=== PATIENT | female | born 1945 | race Caucasian/White ===

== ENCOUNTER 2016-08-17 17:35 | Inpatient (IN) | payer MEDICARE, OTHER ==
[~2016-08-17] VITALS: Ht 154.9 cm; Wt 47.3 kg
[2016-08-17] VITALS (10 sets, daily range): BP systolic 96–131; BP diastolic 47–77; PULSE 98–108; RESP 20; TEMP 98.7–99.6; O2SAT 92–95
[~2016-08-17 17:35] MED LIST: ALBU17I INH; AZIT500I PO; COMBAER INH; PRED10 PO
[2016-08-17] MEDS ORDERED: VENTAER INH ×2 (17:56→19:04)
--- NOTE | 2016-08-17 18:06 | PD ---
HPI Chief Complaint: Respiratory Symptoms Time Seen by Provider: 17:55 Travel History International Travel<30 days: No Contact w/Intl Traveler<30days: No Traveled to known affect area: No History of Present Illness HPI 71yo F with PMH of COPD, cig smoker presents to the ED with c/o chest congestion , nasal congestion, cough and midsternal chest pain with cough for 1 week. Also had tactile fever and nonbloody diarrhea since last night. Denies any vomiting or abdominal pain. States granddaughter was sick 1 week or 2 before. PFSH Past Medical History Autoimmune Disease: No Cancer: Yes (CERVICAL 2008) Cardiovascular Problems: No Chemotherapy: Yes COPD: Yes Endocrine: No Genitourinary: Yes (KIDNEY STENT, UROVAGINAL FISTULA) Immune Disorder: No Musculoskeletal: No Neurologic: No Reproductive: No Respiratory: Yes Radiation Therapy: Yes Influenza Vaccination: No ?: Not Past Surgical History Genitourinary Surgery: Yes (KIDNEY STENT CHANGED Q6MTHS) Social History Alcohol Use: No Tobacco Use: Yes (1/2 ppd) Substance Use: No Allergies-Medications (Allergen,Severity, Reaction): Coded Allergies: No Known Allergies (Unverified , 08/17/16) Reported Meds & Prescriptions Reported Meds & Active Scripts Active Review of Systems Except as stated in HPI: all other systems reviewed are Neg Physical Exam Narrative GENERAL: 71yo F in mild distress. SKIN: Warm and dry. HEAD: Atraumatic. Normocephalic. EYES: Pupils equal and round. No scleral icterus. No injection or drainage. ENT: + Increased right nasal turbinate swelling. NECK: Trachea midline. No JVD. CARDIOVASCULAR: Regular rate and rhythm. No murmur appreciated. RESPIRATORY: Mildly tachypneic. Mild coarse breath sounds lower lungs. GASTROINTESTINAL: Abdomen soft, non-tender, nondistended. No rebound tenderness or guarding. MUSCULOSKELETAL: No obvious deformities. No clubbing. No cyanosis. No edema. NEUROLOGICAL: Awake and alert. No obvious cranial nerve deficits. Motor grossly within normal limits. Normal speech. PSYCHIATRIC: Appropriate mood and affect; insight and judgment normal. Data Data Last Documented VS Vital Signs Date Time Temp Pulse Resp B/P Pulse Ox O2 Delivery O2 Flow Rate FiO2 08/17/16 20:00 100 20 96/47 92 Room Air 08/17/16 18:22 21 08/17/16 17:43 98.7 Orders Complete Blood Count With Diff (08/17/16 18:02) Basic Metabolic Panel (Bmp) (08/17/16 18:02) Act Partial Throm Time (Ptt) (08/17/16 18:02) Prothrombin Time / Inr (Pt) (08/17/16 18:02) Magnesium (Mg) (08/17/16 18:02) Ckmb (Isoenzyme) Profile (08/17/16 18:02) Troponin I (08/17/16 18:02) Arterial Blood Gas (Abg) (08/17/16 18:02) Influenzae A/B Antigen (08/17/16 18:02) Blood Culture (08/17/16 18:02) Iv Access Insert/Monitor (08/17/16 18:02) Electrocardiogram (08/17/16 18:02) Ecg Monitoring (08/17/16 18:02) Oximetry (08/17/16 18:02) Oxygen Administration (08/17/16 18:02) Chest, Single Ap (08/17/16 18:02) Methylprednisolone So Succ Inj (Solumedr (08/17/16 18:15) Albuterol-Ipratropium Neb (Duoneb Neb) (08/17/16 18:15) Lactic Acid Sepsis Protocol (08/17/16 18:02) CKMB (08/17/16 18:20) CKMB% (08/17/16 18:20) B-Type Natriuretic Peptide (08/17/16 19:36) Place In Observation (08/17/16 ) Vital Signs (Adult) Q4H (08/17/16 19:58) Activity Oob With Assistance (08/17/16 19:58) Magnetic Prospector / Telemetry .CONTINUOUS (08/17/16 19:58) Diet Heart Healthy (08/18/16 Breakfast) Sodium Chloride 0.9% Flush (Ns Flush) (08/17/16 20:00) Sodium Chloride 0.9% Flush (Ns Flush) (08/17/16 21:00) Basic Metabolic Panel (Bmp) (08/18/16 06:00) Complete Blood Count With Diff (08/18/16 06:00) Resp Oxygen Adeel C Titrat 1-4 L (08/17/16 ) Pt Request For Service (08/17/16 19:58) Case Management Consult (08/17/16 19:58) Enoxaparin Inj (Lovenox Inj) (08/18/16 09:00) Naloxone Inj (Narcan Inj) (08/17/16 20:00) Admit Order (Ed Use Only) (08/17/16 20:03) Labs Laboratory Tests Test 08/17/16 18:20 White Blood Count 11.2 TH/MM3 Red Blood Count 3.27 MIL/MM3 Hemoglobin 10.9 GM/DL Hematocrit 32.3 % Mean Corpuscular Volume 98.6 FL Mean Corpuscular Hemoglobin 33.2 PG Mean Corpuscular Hemoglobin 33.7 % Concent Red Cell Distribution Width 13.6 % Platelet Count 280 TH/MM3 Mean Platelet Volume 6.2 FL Neutrophils (%) (Auto) 93.0 % Lymphocytes (%) (Auto) 3.2 % Monocytes (%) (Auto) 3.4 % Eosinophils (%) (Auto) 0.3 % Basophils (%) (Auto) 0.1 % Neutrophils # (Auto) 10.4 TH/MM3 Lymphocytes # (Auto) 0.4 TH/MM3 Monocytes # (Auto) 0.4 TH/MM3 Eosinophils # (Auto) 0.0 TH/MM3 Basophils # (Auto) 0.0 TH/MM3 CBC Comment DIFF FINAL Differential Comment Prothrombin Time 11.1 SEC Prothromb Time International 1.0 RATIO Ratio Activated Partial 39.0 SEC Thromboplast Time Blood Gas Puncture Site LT RADIAL Blood Gas Patient Temperature 98.6 Blood Gas HCO3 22 mmol/L Blood Gas Base Excess -0.9 mmol/L Blood Gas Oxygen Saturation 90 % Arterial Blood pH 7.46 Arterial Blood Partial 32 mmHG Pressure CO2 Arterial Blood Partial 70 mmHG Pressure O2 Arterial Blood Oxygen Content 15.0 Vol % Arterial Blood 4.0 % Carboxyhemoglobin Arterial Blood Methemoglobin 1.3 % Blood Gas Hemoglobin 11.8 G/DL Oxygen Delivery Device ROOM AIR Blood Gas Inspired Oxygen 21 % Sodium Level 130 MEQ/L Potassium Level 3.9 MEQ/L Chloride Level 95 MEQ/L Carbon Dioxide Level 24.5 MEQ/L Anion Gap 11 MEQ/L Blood Urea Nitrogen 13 MG/DL Creatinine 1.10 MG/DL Estimat Glomerular Filtration 49 ML/MIN Rate Random Glucose 121 MG/DL Lactic Acid Level 0.7 mmol/L Calcium Level 8.1 MG/DL Magnesium Level 1.8 MG/DL Total Creatine Kinase 134 U/L Creatine Kinase MB 2.1 NG/ML Troponin I LESS THAN 0.02 NG/ML B-Type Natriuretic Peptide 101 PG/ML MDM Medical Decision Making Medical Screen Exam Complete: Yes Emergency Medical Condition: Yes Interpretation(s) EKG: NSR 91bpm. Normal axis. Q wave V1, V2. No St segment elevation or depression. Differential Diagnosis Viral syndrome vs. influenza vs. Pneumonia vs. atypical ACS vs. dehydration Narrative Course 71yo F with flu like symptoms. Pt is a little tachypneic with some coarse breath sounds on exam. Pt is saturating at 93% on RA. Pt with COPD and is a smoker so will give duonebs x3 and methylprednisolone 125mg IV. Pt reevaluated at bedside and feels better after the 3 treatments. Lung exam showed improved air entry now with more expiratory wheezing bilaterally. Labs reviewed, mild leukocytosis at 11.2. H/h low at 10.9/32.3 at baseline. CMP, lactic acid and troponin pending. CXR showed COPD. Bilateral upper lobe interstitial prominence and patchy airspace disease characteristic of pneumonitis or atypical presentation of pulmonary edema. Sign out to next team to follow up labs and reevaluate for disposition. Additional Instructions: Please follow up with your PMD in 3-7 days. Return to the ED if symptoms worsen. Blanka Prather DO Aug 17, 2016 18:06
[2016-08-17] MEDS ORDERED: SODIUM CHLORIDE 0.9% FLUSH 5 ML FLUSH IVF PRN (18:15)
[2016-08-17] MEDS ORDERED: methylPREDNISolone SOD SUCC 125 MG/2 ML VIAL IVP ONE (18:15)
[2016-08-17] MEDS: RESP: ALBUTEROL 2.5 MG/IPRATROPIUM 0.5 MG NEB (SCH) INH ×2 (18:16→18:17)
[2016-08-17 18:29] LABS: BLOOD GAS BASE EXCESS -0.9 mmol/L (-2-2); BLOOD GAS HCO3 22 mmol/L (22-26); BLOOD GAS METHEMOGLOBIN 1.3 % (0-2); BLOOD GAS O2 HGB SATURATION 90 % (90-100); BLOOD GAS PCO2 32 mmHG (38-42); BLOOD GAS PO2 70 mmHG (61-120); BLOOD GAS TOTAL HGB 11.8 G/DL (12.0-16.0); CRITICAL VALUE NO; DRAW SITE LT RADIAL; FIO2 21 %; NUMBER OF ARTERIAL PUNCTURES 1; OXYGEN DEVICE ROOM AIR; STAT YES; TEMP CORR TO 98.6; ULNAR PULSE PRESENT
--- NOTE | 2016-08-17 18:32 | RADHPO ---
EXAM DATE/TIME: 08/17/2016 18:14 [facility] COMPARISON: CHEST SINGLE AP, October 10, 2012, 18:27. INDICATIONS : Chest congestion, cough starting today MEDICAL HISTORY : Chronic obstructive pulmonary disease. SURGICAL HISTORY : None. ENCOUNTER: Initial ACUITY: 1 day PAIN SCORE: 0/10 LOCATION: Bilateral chest FINDINGS: Lungs are hyperinflated. Interstitial prominence and patchy airspace disease has developed in both up per lobes. Heart and mediastinal structures are stable. CONCLUSION: COPD. Bilateral upper lobe interstitial prominence and patchy airspace disease characteristic of pneumoniti s or atypical presentation of pulmonary edema. Jose Santiago MD on August 17, 2016 at 18:30 Board Certified Radiologist. This report was verified electronically.
[2016-08-17 18:46] LABS: AUTOMATED NEUTROPHIL # 10.4 TH/MM3 (1.8-7.7); BASOPHIL % 0.1 % (0.0-2.0); EOSINOPHIL % 0.3 % (0.0-4.0); HEMATOCRIT 32.3 % (35.0-46.0); LYMPH % 3.2 % (9.0-44.0); LYMPHOCYTE # 0.4 TH/MM3 (1.0-4.8); MEAN CELL VOLUME 98.6 FL (80.0-100.0); MEAN CORPUSCULAR HEMOGLOBIN 33.2 PG (27.0-34.0); MEAN CORPUSCULAR HGB CONC 33.7 % (32.0-36.0); MONO % 3.4 % (0.0-8.0); PLATELET COUNT 280 TH/MM3 (150-450); RED BLOOD COUNT 3.27 MIL/MM3 (4.00-5.30); RED CELL DISTRIBUTION WIDTH 13.6 % (11.6-17.2); WHITE BLOOD COUNT 11.2 TH/MM3 (4.0-11.0)
[2016-08-17 18:48] LABS: HEMO FLAGS DIFF FINAL
[2016-08-17 19:00] LABS: CHLORIDE 95 MEQ/L (98-107); POTASSIUM 3.9 MEQ/L (3.5-5.1); SODIUM (NA) 130 MEQ/L (136-145)
[2016-08-17 19:04] LABS: ANION GAP 11 MEQ/L (5-15); BICARBONATE 24.5 MEQ/L (21.0-32.0); BLOOD UREA NITROGEN 13 MG/DL (7-18); MAGNESIUM 1.8 MG/DL (1.5-2.5)
[2016-08-17] MEDS ORDERED: PRED20 PO (19:04)
[2016-08-17 19:05] LABS: PROTHROMBIN TIME - PATIENT 11.1 SEC (9.8-11.6)
[2016-08-17 19:07] LABS: GLOMERULAR FILTRATION RATE 49 ML/MIN (>89)
[2016-08-17 19:10] LABS: CREATINE KINASE 134 U/L (26-192)
[2016-08-17 19:22] LABS: CKMB 2.1 NG/ML (0.5-3.6)
[2016-08-17] MEDS ORDERED: NALOXONE HCL 0.4 MG/ML AMP IV PRN (20:00)
[2016-08-17] MEDS ORDERED: SODIUM CHLORIDE 0.9% FLUSH 5 ML FLUSH FLUSH PRN (20:00)
--- NOTE | 2016-08-17 20:02 | PD ---
Physical Exam Time Seen by Provider: 19:45 Narrative The patient was left by Dr. Prather to make a disposition. The patient thinks she has had a fever at home today. She never took her temperature. She continues to smoke one half pack a day. The patient is mouth breathing continuously and oral temperatures cannot be trusted, we will do an alternate temperature. Data Data Last Documented VS Vital Signs Date Time Temp Pulse Resp B/P Pulse Ox O2 Delivery O2 Flow Rate FiO2 08/17/16 18:55 101 20 108/58 94 08/17/16 18:22 21 08/17/16 17:43 98.7 Orders Complete Blood Count With Diff (08/17/16 18:02) Basic Metabolic Panel (Bmp) (08/17/16 18:02) Act Partial Throm Time (Ptt) (08/17/16 18:02) Prothrombin Time / Inr (Pt) (08/17/16 18:02) Magnesium (Mg) (08/17/16 18:02) Ckmb (Isoenzyme) Profile (08/17/16 18:02) Troponin I (08/17/16 18:02) Arterial Blood Gas (Abg) (08/17/16 18:02) Influenzae A/B Antigen (08/17/16 18:02) Blood Culture (08/17/16 18:02) Iv Access Insert/Monitor (08/17/16 18:02) Electrocardiogram (08/17/16 18:02) Ecg Monitoring (08/17/16 18:02) Oximetry (08/17/16 18:02) Oxygen Administration (08/17/16 18:02) Chest, Single Ap (08/17/16 18:02) Sodium Chloride 0.9% Flush (Ns Flush) (08/17/16 18:15) Methylprednisolone So Succ Inj (Solumedr (08/17/16 18:15) Albuterol-Ipratropium Neb (Duoneb Neb) (08/17/16 18:15) Lactic Acid Sepsis Protocol (08/17/16 18:02) CKMB (08/17/16 18:20) CKMB% (08/17/16 18:20) B-Type Natriuretic Peptide (08/17/16 19:36) Labs Laboratory Tests Test 08/17/16 18:20 White Blood Count 11.2 TH/MM3 Red Blood Count 3.27 MIL/MM3 Hemoglobin 10.9 GM/DL Hematocrit 32.3 % Mean Corpuscular Volume 98.6 FL Mean Corpuscular Hemoglobin 33.2 PG Mean Corpuscular Hemoglobin 33.7 % Concent Red Cell Distribution Width 13.6 % Platelet Count 280 TH/MM3 Mean Platelet Volume 6.2 FL Neutrophils (%) (Auto) 93.0 % Lymphocytes (%) (Auto) 3.2 % Monocytes (%) (Auto) 3.4 % Eosinophils (%) (Auto) 0.3 % Basophils (%) (Auto) 0.1 % Neutrophils # (Auto) 10.4 TH/MM3 Lymphocytes # (Auto) 0.4 TH/MM3 Monocytes # (Auto) 0.4 TH/MM3 Eosinophils # (Auto) 0.0 TH/MM3 Basophils # (Auto) 0.0 TH/MM3 CBC Comment DIFF FINAL Differential Comment Prothrombin Time 11.1 SEC Prothromb Time International 1.0 RATIO Ratio Activated Partial 39.0 SEC Thromboplast Time Blood Gas Puncture Site LT RADIAL Blood Gas Patient Temperature 98.6 Blood Gas HCO3 22 mmol/L Blood Gas Base Excess -0.9 mmol/L Blood Gas Oxygen Saturation 90 % Arterial Blood pH 7.46 Arterial Blood Partial 32 mmHG Pressure CO2 Arterial Blood Partial 70 mmHG Pressure O2 Arterial Blood Oxygen Content 15.0 Vol % Arterial Blood 4.0 % Carboxyhemoglobin Arterial Blood Methemoglobin 1.3 % Blood Gas Hemoglobin 11.8 G/DL Oxygen Delivery Device ROOM AIR Blood Gas Inspired Oxygen 21 % Sodium Level 130 MEQ/L Potassium Level 3.9 MEQ/L Chloride Level 95 MEQ/L Carbon Dioxide Level 24.5 MEQ/L Anion Gap 11 MEQ/L Blood Urea Nitrogen 13 MG/DL Creatinine 1.10 MG/DL Estimat Glomerular Filtration 49 ML/MIN Rate Random Glucose 121 MG/DL Lactic Acid Level 0.7 mmol/L Calcium Level 8.1 MG/DL Magnesium Level 1.8 MG/DL Total Creatine Kinase 134 U/L Creatine Kinase MB 2.1 NG/ML Troponin I LESS THAN 0.02 NG/ML [facility] Medical Record Reviewed: Yes Supervised Visit with VIPIN: Yes Interpretation(s) The cardiac enzymes are normal. The blood gases on room air show pH 7.46, CO2 32, PO2 70 with O2 sat 90%. The carboxyhemoglobin level was 4.0. The chest x- ray shows bilateral upper lobe interstitial prominence and patchy airspace disease characteristic of pneumonitis. Differential Diagnosis COPD with acute exacerbation, pneumonia, bronchitis, electrolyte disorder, continued tobacco abuse, hypoxemia Narrative Course It is now 0748 and the patient has received 3 DuoNeb. The blood gases after the DuoNeb she will that the patient is still tachypneic and has a borderline O2 saturation of 90%. The chest x-ray shows a bilateral pneumonitis, left worse than right. The patient appears to have pneumonitis. This goes along with her cough and perceived fever at home. She remains uncomfortable and short of breath after 3 DuoNeb treatments. The patient is breathing rapidly to achieve the borderline oxygenation of 90%. Plan: The patient will be admitted to Dr. Sommer. I discussed the patient with her. She will be put on Levaquin. Sepsis Criteria SIRS Criteria (2 or more): Heart rate over 90 Diagnosis Primary Impression: Bilateral pneumonia Additional Impression: COPD with acute exacerbation Patient Instructions: General Instructions Departure Forms: Tests/Procedures Additional Instruction: Please follow up with your PMD in 3-7 days. Return to the ED if symptoms worsen. Scripts Prednisone 20 Mg Tab20 Mg PO BID 5 Days Ref 0 Prov:Blanka Prather DO 08/17/16 Albuterol 18 GM Inh (Ventolin Hfa 18 GM Inh)90 Mcg/Act Aer2 Puff INH Q4H PRN ( SHORTNESS OF BREATH) #1 INHALER Ref 0 Prov:Blanka Prather DO 08/17/16 Disposition: 01 DISCHARGE HOME Condition: Stable Feliciano Medeiros MD Aug 17, 2016 20:02
[2016-08-17] MEDS ORDERED: LEVOFLOXACIN 500 MG PREMIX INJ 100 ML IV ONE (20:15)
[2016-08-17] MEDS: SODIUM CHLORIDE 0.9% FLUSH 5 ML FLUSH FLUSH SCH (20:47)
[2016-08-17] MEDS ORDERED: RESP: ALBUTEROL 2.5 MG/IPRATROPIUM 0.5 MG NEB (PRN) NEB (21:00)
[2016-08-17] MEDS: RESP: ALBUTEROL 2.5 MG/IPRATROPIUM 0.5 MG NEB (SCH) NEB (21:22)
[2016-08-18] VITALS (12 sets, daily range): BP systolic 101–141; BP diastolic 68–84; PULSE 89–138; RESP 19–24; TEMP 96.2–100.1; O2SAT 89–99
[2016-08-18] MEDS: methylPREDNISolone SOD SUCC 40 MG/1 ML VIAL IV PUSH SCH ×5 (00:15→23:07)
[2016-08-18] MEDS ORDERED: NICOTINE 7 MG/24 HR PATCH TD ONE ×3 (00:45→16:45)
[2016-08-18] MEDS: RESP: ALBUTEROL 2.5 MG/IPRATROPIUM 0.5 MG NEB (SCH) NEB ×4 (03:41→21:24)
[2016-08-18 06:09] LABS: AUTOMATED NEUTROPHIL # 8.2 TH/MM3 (1.8-7.7); EOSINOPHIL % 0.1 % (0.0-4.0); HEMATOCRIT 30.8 % (35.0-46.0); LYMPH % 2.7 % (9.0-44.0); LYMPHOCYTE # 0.2 TH/MM3 (1.0-4.8); MEAN CELL VOLUME 97.9 FL (80.0-100.0); MEAN CORPUSCULAR HEMOGLOBIN 32.5 PG (27.0-34.0); MEAN CORPUSCULAR HGB CONC 33.2 % (32.0-36.0); MONO % 1.3 % (0.0-8.0); NEUT % 95.9 % (16.0-70.0); PLATELET COUNT 271 TH/MM3 (150-450); RED BLOOD COUNT 3.15 MIL/MM3 (4.00-5.30); RED CELL DISTRIBUTION WIDTH 13.1 % (11.6-17.2); WHITE BLOOD COUNT 8.5 TH/MM3 (4.0-11.0)
[2016-08-18 06:11] LABS: HEMO FLAGS DIFF FINAL
[2016-08-18 06:17] LABS: POTASSIUM 4.4 MEQ/L (3.5-5.1)
[2016-08-18 06:20] LABS: BICARBONATE 23.2 MEQ/L (21.0-32.0)
--- NOTE | 2016-08-18 08:52 | HHI.HP ---
HPI Service [facility] Hospitalists Primary Care Physician No Primary Care Physician Admission Diagnosis bilateral pneumonitis Diagnoses: Chief Complaint: SOB cough fatigue feverish Travel History International Travel<30 Days: No Contact w/Intl Traveler <30 Da: No Traveled to Known Affected Are: No History of Present Illness This is a 71-year-old female with past medical history significant for COPD with continued tobacco use and previous history of cervical cancer who presents to [place] ED with complaints of increased shortness of breath, cough and fatigue ongoing for the past week. She also reports associated subjective fever , chills, runny nose and headache. Reports mild sore throat at the onset of her symptoms but this has since resolved. She also states that she had severe diarrhea all night long 2 nights ago but none in the past 24 hours. She had a brief episode of nausea yesterday morning but denies any vomiting. She denies any recent antibiotic use. She denies any complaints of chest pain or abdominal pain. She denies any lower extremity swelling. She denies any urinary complaints and also denies any hematochezia or melena. She does not use oxygen at home. She continues to smoke a half pack per day. She states she only uses an albuterol inhaler at home. She was previously on an inhaled twice daily medication but this ran out over a year ago. She's not been to see a physician for the past several years because she's been "healthy". She lives with her daughter and granddaughter both of whom have been ill with cough, fever and congestion and on antibiotics. Review of Systems Constitutional: COMPLAINS OF: Fever (subjective, did not record), DENIES: Chills, Dizziness, Night Sweats Endocrine: DENIES: Polydipsia, Polyuria, Polyphagia Eyes: DENIES: Blurred vision, Diplopia, Double Vision Ears, nose, mouth, throat: COMPLAINS OF: Throat pain (one week ago, mild, resolved), Running Nose, DENIES: Vertigo, Ear Pain Respiratory: COMPLAINS OF: Cough (chronic, increased in past week), Sputum production (whitish increased production), Shortness of breath (as stated in HPI ) Cardiovascular: DENIES: Chest pain, Palpitations, Lower Extremity Edema Gastrointestinal: COMPLAINS OF: Diarrhea (2 nights ago, resolved), DENIES: Abdominal pain, Black stools, Bloody stools, Vomiting Genitourinary: DENIES: Urinary frequency, Hematuria, Dysuria Musculoskeletal: DENIES: Back pain, Neck pain Integumentary: DENIES: Pruritus, Rash Hematologic/lymphatic: DENIES: Lymphadenopathy Immunologic/allergic: DENIES: Eczema, Urticaria Neurologic: COMPLAINS OF: Headache (as stated in HPI), DENIES: Paresthesias, Seizures Psychiatric: DENIES: Confusion, Mood changes, Depression Past Family Social History Past Medical History Cervical cancer, status post chemotherapy COPD History of kidney stent placement, urovaginal fistula Past Surgical History Left renal stent placement due to obstruction related to cervical cancer Reported Medications Albuterol inhaler Allergies: Coded Allergies: No Known Allergies (Unverified , 08/17/16) Active Ordered Medications Current Medications Medications (Trade) Dose Ordered Sig/Chad Route Start Time Stop Time Status Last Admin (NS Flush) 2 ml UNSCH PRN FLUSH 08/17/16 20:00 (NS Flush) 2 ml BID FLUSH 08/17/16 21:00 08/17/16 20:47 (Lovenox Inj) 40 mg Q24H SQ 08/18/16 09:00 (Narcan Inj) 0.4 mg UNSCH PRN IV 08/17/16 20:00 (SoluMEDROL INJ) 40 mg Q6HR IV PUSH 08/18/16 00:00 08/18/16 06:14 Pantoprazole Sodium 40 mg 40 mg DAILY PO 08/18/16 09:00 (Levaquin 750 Mg Premix Inj) 150 ml @ 100 mls/hr Q48H IV 08/18/16 21:00 (Levaquin) 750 mg DAILY PO 08/18/16 09:00 UNV Family History Mother and father of unknown cancer in their 80s Grandmother, diabetes Social History Patient denies any alcohol use or illicit drug use. Patient is every day smoker, 1/2 ppd. Physical Exam Vital Signs Vital Signs Date Time Temp Pulse Resp B/P Pulse Ox O2 Delivery O2 Flow Rate FiO2 08/18/16 08:00 98.2 102 20 125/74 95 08/18/16 04:08 99 08/18/16 04:00 96.2 105 19 127/68 93 08/18/16 00:39 89 08/18/16 00:00 98.3 96 24 141/81 93 08/17/16 23:25 100 20 117/62 95 Room Air 08/17/16 22:00 108 20 118/56 94 Room Air 08/17/16 21:22 95 21 08/17/16 21:00 99.6 98 20 131/61 95 Room Air 08/17/16 20:00 100 20 96/47 92 Room Air 08/17/16 19:25 16 93 08/17/16 19:00 99 20 112/51 93 Room Air 08/17/16 18:55 101 20 108/58 94 08/17/16 18:40 95 08/17/16 18:22 93 21 08/17/16 17:49 16 93 08/17/16 17:43 98.7 104 20 120/77 93 Physical Exam GENERAL: This is a thin, elderly patient, with mild dyspnea noted with conversation. SKIN: No rashes, ecchymoses or lesions. Cool and dry. HEAD: Atraumatic. Normocephalic. No temporal or scalp tenderness. EYES: Pupils equal round and reactive. Extraocular motions intact. No scleral icterus. No injection or drainage. ENT: Nose without bleeding, purulent drainage or septal hematoma. Throat without erythema, tonsillar hypertrophy or exudate. Uvula midline. Airway patent. NECK: Trachea midline. No lymphadenopathy. Supple, nontender, no meningeal signs. CARDIOVASCULAR: Regular rate and rhythm without murmurs, gallops, or rubs. RESPIRATORY: Clear to auscultation. Breath sounds equal bilaterally. Mild expiratory wheezing noted. Prolonged expiration. GASTROINTESTINAL: Abdomen soft, non-tender, nondistended. No hepato-splenomegaly , or palpable masses. No guarding. MUSCULOSKELETAL: Extremities without clubbing, cyanosis, or edema. No joint tenderness, effusion, or edema noted. No calf tenderness. NEUROLOGICAL: Awake and alert. Cranial nerves II through XII intact. Motor and sensory grossly within normal limits. Five out of 5 muscle strength in all muscle groups. Normal speech. Laboratory Laboratory Tests Test 08/17/16 08/18/16 18:20 04:57 White Blood Count 11.2 8.5 Red Blood Count 3.27 3.15 Hemoglobin 10.9 10.2 Hematocrit 32.3 30.8 Mean Corpuscular Volume 98.6 97.9 Mean Corpuscular Hemoglobin 33.2 32.5 Mean Corpuscular Hemoglobin 33.7 33.2 Concent Red Cell Distribution Width 13.6 13.1 Platelet Count 280 271 Mean Platelet Volume 6.2 6.6 Neutrophils (%) (Auto) 93.0 95.9 Lymphocytes (%) (Auto) 3.2 2.7 Monocytes (%) (Auto) 3.4 1.3 Eosinophils (%) (Auto) 0.3 0.1 Basophils (%) (Auto) 0.1 0.0 Neutrophils # (Auto) 10.4 8.2 Lymphocytes # (Auto) 0.4 0.2 Monocytes # (Auto) 0.4 0.1 Eosinophils # (Auto) 0.0 0.0 Basophils # (Auto) 0.0 0.0 CBC Comment DIFF FINAL DIFF FINAL Differential Comment Prothrombin Time 11.1 Prothromb Time International 1.0 Ratio Activated Partial 39.0 Thromboplast Time Blood Gas Puncture Site LT RADIAL Blood Gas Patient Temperature 98.6 Blood Gas HCO3 22 Blood Gas Base Excess -0.9 Blood Gas Oxygen Saturation 90 Arterial Blood pH 7.46 Arterial Blood Partial 32 Pressure CO2 Arterial Blood Partial 70 Pressure O2 Arterial Blood Oxygen Content 15.0 Arterial Blood 4.0 Carboxyhemoglobin Arterial Blood Methemoglobin 1.3 Blood Gas Hemoglobin 11.8 Oxygen Delivery Device ROOM AIR Blood Gas Inspired Oxygen 21 Sodium Level 130 130 Potassium Level 3.9 4.4 Chloride Level 95 96 Carbon Dioxide Level 24.5 23.2 Anion Gap 11 11 Blood Urea Nitrogen 13 14 Creatinine 1.10 1.10 Estimat Glomerular Filtration 49 49 Rate Random Glucose 121 197 Lactic Acid Level 0.7 Calcium Level 8.1 8.3 Magnesium Level 1.8 Total Creatine Kinase 134 Creatine Kinase MB 2.1 Troponin I LESS THAN 0.02 B-Type Natriuretic Peptide 101 Date/Time Procedure Status Source Growth 08/17/16 18:30 Aerobic Blood Culture Received Blood Peripheral Pending 08/17/16 18:30 Anaerobic Blood Culture Received Blood Peripheral Pending 08/17/16 18:25 Influenza Types A,B Antigen (EMPERATRIZ) - Final Complete Nasal Aspirate NEGATIVE FOR FLU A AND B ANTIGEN.... Result Diagram: 08/18/1645608/18/[id number] Imaging Last Impressions Chest X-Ray 08/17/16 1802 Signed Impressions: Service Date/Time: Wednesday, August 17, 2016 18:14 - CONCLUSION: COPD. Bilateral upper lobe interstitial prominence and patchy airspace disease characteristic of pneumonitis or atypical presentation of pulmonary edema. Jose Santiago MD Assessment and Plan Assessment and Plan 71-year-old female with past medical history significant for COPD with continued tobacco use and previous history of cervical cancer who presents to [place] ED with complaints of increased shortness of breath, cough and fatigue ongoing for the past week. AECOPD with possible PNA Levaquin by mouth Supplemental oxygen Scheduled DuoNeb treatments Echocardiogram ordered for evaluation of possible heart failure although unlikely given no evidence of fluid overload and normal BNP at admission IV steroid 40 mg every 6h Albuterol treatment when necessary Patient may benefit from home oxygen walk test prior to discharge Ongoing tobacco use Qi Specialist patient on importance of smoking cessation Nicotine patch ordered DVT/GI prophylaxis Lovenox 40 mg subcutaneous daily Pepcid Written by Dang Hong, acting as scribe for Dr. Varghese on 08/18/16 at 08: 52. Dang Hogn Aug 18, 2016 08:52
[2016-08-18] MEDS ORDERED: LEVOFLOXACIN 750 MG TAB PO SCH (09:00)
[2016-08-18] MEDS: ENOXAPARIN SODIUM 40 MG/0.4 ML SYRINGE SQ SCH (09:06)
[2016-08-18] MEDS: PANTOPRAZOLE SOD 40 MG DELAYED RELEASE TAB PO SCH (09:06)
[2016-08-18] MEDS: SODIUM CHLORIDE 0.9% FLUSH 5 ML FLUSH FLUSH SCH ×2 (09:06→20:39)
[2016-08-18] MEDS ORDERED: PILL SPLITTER OTHER PRN (11:30)
[2016-08-18] MEDS: FAMOTIDINE 20 MG TAB PO SCH ×2 (11:43→20:39)
[2016-08-18] MEDS ORDERED: LEVOFLOXACIN 750 MG PREMIX INJ 150 ML IV SCH (21:00)
[2016-08-18] MEDS: REMOVE OLD NICODERM (NICOTINE) PATCH TD SCH (21:00)
--- NOTE | 2016-08-18 23:54 | EKG ---
Date Performed: 08/17/2016 Time Performed: 18:21:02 PTAGE: 71 years EKG: Sinus rhythm Normal ECG PREVIOUS TRACING : 10/10/2012 18.02 Compared to prior tracing no significant change DOCTOR: Gilberto West Interpretating Date/Time 08/18/2016 23:53:03
[2016-08-19] VITALS (7 sets, daily range): BP systolic 118–160; BP diastolic 76–81; PULSE 92–128; RESP 18–22; TEMP 97.9–98.9; O2SAT 92–96
[2016-08-19] MEDS: RESP: ALBUTEROL 2.5 MG/IPRATROPIUM 0.5 MG NEB (SCH) NEB ×4 (03:52→20:26)
[2016-08-19] MEDS: methylPREDNISolone SOD SUCC 40 MG/1 ML VIAL IV PUSH SCH ×4 (05:19→23:28)
[2016-08-19] MEDS: PANTOPRAZOLE SOD 40 MG DELAYED RELEASE TAB PO SCH (09:07)
[2016-08-19] MEDS: FAMOTIDINE 20 MG TAB PO SCH ×2 (09:07→20:26)
[2016-08-19] MEDS: NICOTINE 7 MG/24 HR PATCH TD SCH (09:07)
[2016-08-19] MEDS: ENOXAPARIN SODIUM 40 MG/0.4 ML SYRINGE SQ SCH (09:07)
[2016-08-19] MEDS: SODIUM CHLORIDE 0.9% FLUSH 5 ML FLUSH FLUSH SCH ×2 (09:08→20:27)
--- NOTE | 2016-08-19 10:27 | HHI.PR ---
Subjective Remarks Patient states that she feels 75% better however she still gets quite tachycardic with any exertion. On 3 L nasal cannula. Objective Vitals Vital Signs Date Time Temp Pulse Resp B/P Pulse Ox O2 Delivery O2 Flow Rate FiO2 08/19/16 08:45 2.00 08/19/16 08:31 93 21 08/19/16 08:00 97.9 97 18 133/79 92 08/19/16 00:00 98.9 128 20 121/76 95 08/18/16 21:24 93 Nasal Cannula 2.00 08/18/16 20:00 98.4 138 20 131/81 94 08/18/16 16:00 98.8 119 20 140/84 95 08/18/16 15:26 96 Nasal Cannula 2.00 08/18/16 15:00 89 21 08/18/16 12:00 98.1 110 20 134/76 92 I/O 08/18/16 08/18/16 08/18/16 08/19/16 08/19/16 08/19/16 07:00 15:00 23:00 07:00 15:00 23:00 Intake Total 480 ml 800 ml 960 ml Balance 480 ml 800 ml 960 ml Intake Oral 480 ml 800 ml 960 ml # Voids 3 5 2 2 # Bowel Movements 0 0 0 Result Diagram: 08/18/1645608/[id number] Objective Remarks GENERAL: Well-nourished, well-developed pleasant female patient. SKIN: Warm and dry. HEAD: Normocephalic. EYES: No scleral icterus. No injection or drainage. NECK: Supple, trachea midline. No JVD or lymphadenopathy. CARDIOVASCULAR: Regular rate and rhythm without murmurs, gallops, or rubs. RESPIRATORY: Prolonged expiratory phase with diffuse wheezing bilaterally. No accessory muscle use on 3 L nasal cannula. Breath sounds equal bilaterally. GASTROINTESTINAL: Abdomen soft, non-tender, nondistended. EXTREMITIES: No cyanosis, or edema. NEUROLOGICAL: Awake, alert, and oriented x 3. Non-focal. A/P Assessment and Plan -Acute COPD exacerbation with hypoxemia and acute bilateral pneumonitis. Improved however still significantly tachycardic with exertion. We'll continue Solu-Medrol but increase to 60 mg IV every 6, DuoNeb's, Levaquin. Walk test demonstrates that she will need home oxygen. We'll start Spiriva. -Chronic hyponatremia. Not symptomatic at this time, monitor sodium. -Chronic kidney disease stage III, stable. -Ongoing tobacco use. Continue cessation strategies. Nicotine patch. -DVT prophylaxis. Lovenox 40 mg subcutaneous daily. Discharge Planning Discharge home in 1-2 days pending further clinical improvement. Jaylyn Varghese MD Aug 19, 2016 10:27
[2016-08-19] MEDS: TIOTROPIUM BROMIDE 18 MCG INH INH SCH (11:40)
--- NOTE | 2016-08-19 12:27 | EC ---
Study Study Date:08/19/2016 STUDY CONCLUSIONS SUMMARY - Left ventricle: The cavity size was normal. Wall thickness was normal. Systolic function was normal. The estimated ejection fraction was in the range of 60% to 65%. Wall motion was normal; there were no regional wall motion abnormalities. - Aortic valve: Valve area: 2.72cm^2(VTI). Valve area: 2.5cm^2 (Vmax). - Tricuspid valve: Mild-moderate regurgitation. - Pulmonary arteries: PA peak pressure: 45mm Hg (S). If LV function is below 40, please consider prescribing an ACEI or ARB or document rationale for non-use. PROCEDURE DATA STUDY STATUS: Elective. Procedure: Transthoracic echocardiography. Image quality was good. Scanning was performed from the parasternal, apical, and subcostal acoustic windows. Study completion: The patient tolerated the procedure well. Transthoracic echocardiography. M-mode, complete 2D, complete spectral Doppler, and color Doppler. Height: Height: 72in. Weight: Weight: 99.8lb. Body mass index: BMI: 13.6kg/m^2. Body surface area: BSA: 1.59m^2. Patient status: Inpatient. CARDIAC ANATOMY LEFT VENTRICLE: The cavity size was normal. Wall thickness was normal. Systolic function was normal. The estimated ejection fraction was in the range of 60% to 65%. Wall motion was normal; there were no regional wall motion abnormalities. AORTIC VALVE: Trileaflet; normal thickness leaflets. Doppler: Transvalvular velocity was within the normal range. There was no stenosis. No regurgitation. Valve area: 2.72cm^2(VTI). Indexed valve area: 1.71cm^2/m^2 (VTI). Valve area: 2.5cm^2 (Vmax). Indexed valve area: 1.57cm^2/m^2 (Vmax). Mean gradient: 3mm Hg (S). AORTA: The aorta was mildly calcified. Aortic root: The aortic root was normal in size. MITRAL VALVE: Mildly thickened leaflets, . Doppler: Transvalvular velocity was within the normal range. There was no evidence for stenosis. Trace to mild regurgitation. LEFT ATRIUM: The atrium was normal in size. RIGHT VENTRICLE: The cavity size was normal. Wall thickness was normal. PULMONIC VALVE: Doppler: Transvalvular velocity was within the normal range. There was no evidence for stenosis. No regurgitation. TRICUSPID VALVE: Structurally normal valve. Doppler: Transvalvular velocity was within the normal range. Mild-moderate regurgitation. PULMONARY ARTERY: The main pulmonary artery was normal-sized. Systolic pressure was within the normal range. RIGHT ATRIUM: The atrium was normal in size. PERICARDIUM: There was no pericardial effusion. SYSTEMIC VEINS: Inferior vena cava: The vessel was normal in size. Patient weight: 99.8lb _Ejection fraction:_ 65-75% _Fractional shortening:_ 32% up to 5Kg 5-11.5Kg 11.6-22.9Kg 23-45Kg 45-57Kg Aortic Root 7-13 <17 13-22 17-27 17-27 LA diam 6-13 <23 24-38 33-47 37-40 RVID 10-17 7-15 7-15 7-18 8-17 LVIDd 12-22 <32 24-38 33-47 37-40 LVPW 2-4 3-6 5-7 6-8 7-8 IVS 2-4 3-6 5-7 6-8 7-8 BASIC MEASUREMENTS ADULT NORMAL Left ventricle LV internal dimension, ED, chordal *40.7 mm 43-52 level, PLAX LV internal dimension, ES, chordal 25.5 mm 23-38 level, PLAX Fractional shortening, chordal level, 37 % >29 PLAX LV posterior wall thickness, ED 9.5 mm IVS/LVPW ratio, ED 1.02 <1.3 Ventricular septum Septal thickness, ED 9.69 mm Aortic valve Leaflet separation 22 mm 15-26 Aorta Root diameter, ED 34 mm Left atrium Anterior-posterior dimension 22 mm Anterior-posterior dimension index 1.38 cm/m^2 <2.2 BASIC MEASUREMENTS ADULT NORMAL Aortic valve Leaflet separation 22 mm 15-26 DOPPLER MEASUREMENTS ADULT NORMAL Main pulmonary artery Pressure, S *45 mm Hg =30 Aortic valve Peak velocity, S 117 cm/s Mean velocity, S 81.8 cm/s VTI, S 19.2 cm Mean gradient, S 3 mm Hg Valve area, VTI 2.72 cm^2 Valve area index, VTI 1.71 cm^2/m^2 Valve area, Vmax 2.5 cm^2 Valve area index, Vmax 1.57 cm^2/m^2 Mitral valve Peak E-wave velocity 67.1 cm/s Peak A-wave velocity 103 cm/s Deceleration time *246 ms 150-230 Peak E/A ratio 0.7 Tricuspid valve Regurgitant peak velocity 300 cm/s Peak RV-RA gradient, S 36 mm Hg Maximal regurgitant velocity 300 cm/s Systemic veins Estimated CVP 10 mm Hg Right ventricle RV pressure, S *46 mm Hg <30 Pulmonic valve Peak velocity, S 58.7 cm/s LEGEND: Mean values are shown as u=mean value. Asterisk (*) hitchcock values outside specified normal range. Prepared and signed by Karie Barrientos [id number]
[2016-08-19] MEDS: REMOVE OLD NICODERM (NICOTINE) PATCH TD SCH (20:29)
[2016-08-20] VITALS (8 sets, daily range): BP systolic 109–151; BP diastolic 79–86; PULSE 89–101; RESP 18–22; TEMP 96.7–97.7; O2SAT 93–97
[2016-08-20] MEDS: RESP: ALBUTEROL 2.5 MG/IPRATROPIUM 0.5 MG NEB (SCH) NEB ×3 (04:02→19:39)
[2016-08-20] MEDS: methylPREDNISolone SOD SUCC 40 MG/1 ML VIAL IV PUSH SCH ×4 (06:01→23:32)
--- NOTE | 2016-08-20 07:59 | HHI.PR ---
Subjective Remarks Patient seen and examined today with Dr. Varghese. Patient is up and moving around in the room without any obvious symptoms. Patient states that she is 50 % better than when she came to the hospital. Patient does indicate that throughout the day her breathing does improve. Objective Vitals Vital Signs Date Time Temp Pulse Resp B/P Pulse Ox O2 Delivery O2 Flow Rate FiO2 08/20/16 04:37 97.3 89 18 120/79 96 08/20/16 00:48 96.7 93 20 128/86 95 08/19/16 21:07 98.5 99 22 137/80 96 08/19/16 20:28 92 Nasal Cannula 2.00 08/19/16 16:00 98.1 95 20 160/79 95 08/19/16 12:08 98.1 92 18 118/81 94 08/19/16 08:45 2.00 08/19/16 08:31 93 21 08/19/16 08:00 97.9 97 18 133/79 92 I/O 08/19/16 08/19/16 08/19/16 08/20/16 08/20/16 08/20/16 07:00 15:00 23:00 07:00 15:00 23:00 Intake Total 600 ml Balance 600 ml Intake Oral 600 ml # Voids 2 3 2 Result Diagram: 08/18/16 0457 08/18/16 0457 Objective Remarks GENERAL: Well-developed, well-nourished, in no acute distress. alert and orientated HEENT: Head is normocephalic without any lesions or masses noted. Facial features are symmetric. Eyes: Extraocular muscles are intact. Conjunctivae were clear. NECK: Supple without any masses. Trachea midline no deviation. No JVD, no bruits are appreciated CARDIAC: Regular rhythm, regular rate. S1/S2 are heard. No murmurs gallops or rubs. LUNGS: Mild expiratory wheeze, no rhonchi or rales. No use of accessory muscles on inspiration or expiration. Patient breathing through pursed lips, cannot complete full sentences ABDOMEN: Soft, nontender. Nondistended. Bowel sounds heard in all 4 quadrants. No organomegaly or masses. Negative rebound, negative guarding EXTREMITIES: No edema, pulses are equal bilaterally. No cyanosis or clubbing NEUROLOGY: Mood and affect appear appropriate. Cranial nerves II through XII grossly intact. Moving all extremities, speech is clear Vascular Central Line Catheter: No A/P Assessment and Plan -Acute COPD exacerbation with hypoxemia and acute bilateral pneumonitis. Improved at least 50% per patient. Tachycardia has improved. We'll continue Solu-Medrol 60 mg IV every 6 hr, DuoNeb's, Levaquin, Spiriva. Walk test demonstrates that she will need home oxygen. Consult transplant case manager arrange home oxygen -Hyperglycemia, likely secondary to steroid use. Obtain hemoglobin A1c, start Accu-Cheks with sliding scale insulin -Chronic hyponatremia. Stable and not symptomatic at this time, monitor sodium. -Chronic kidney disease stage III, stable. -Ongoing tobacco use. Continue cessation strategies. Nicotine patch. -DVT prophylaxis. Lovenox 40 mg subcutaneous daily. Written by Ancelmo Medeiros PA-C, acting as scribe for Dr. Varghese on 08/20/16 at 1120. The documentation accurately reflects the work and decisions performed face-to- face by Dr. Varghese on 08/20/16 at 1120. Discharge Planning Plan discharge likely tomorrow if clinically improves and home oxygen has been arranged. Ancelmo Medeiros Aug 20, 2016 07:59 Jaylyn Varghese MD Aug 20, 2016 12:14
[2016-08-20] MEDS ORDERED: DEXTROSE 50% IN WATER 50 ML VIAL(D50) IV PUSH PRN (08:00)
[2016-08-20] MEDS ORDERED: GLUCAGON 1 MG/ML VIAL OTHER PRN (08:00)
[2016-08-20] MEDS ORDERED: OXYGENTANK NAS.CANULA (08:01)
[2016-08-20] MEDS: TIOTROPIUM BROMIDE 18 MCG INH INH SCH (08:09)
[2016-08-20] MEDS: PANTOPRAZOLE SOD 40 MG DELAYED RELEASE TAB PO SCH (08:11)
[2016-08-20] MEDS: FAMOTIDINE 20 MG TAB PO SCH ×2 (08:11→20:23)
[2016-08-20] MEDS: SODIUM CHLORIDE 0.9% FLUSH 5 ML FLUSH FLUSH SCH ×2 (08:12→20:22)
[2016-08-20] MEDS: NICOTINE 7 MG/24 HR PATCH TD SCH (08:12)
[2016-08-20] MEDS: ENOXAPARIN SODIUM 40 MG/0.4 ML SYRINGE SQ SCH (08:12)
[2016-08-20] MEDS ORDERED: LEVOFLOXACIN 750 MG TAB PO SCH (09:00)
[2016-08-20] MEDS: INSULIN ASPART SUPPLEMENTAL SCALE SQ SCH ×3 (11:00→20:32)
[2016-08-20] MEDS: ACETAMINOPHEN/HYDROcodone 325 MG/5 MG TAB PO PRN ×3 (11:16→23:39)
[2016-08-20 15:20] LABS: HEMOGLOBIN A1b 2.2 %; HEMOGLOBIN Ao 82.9 %; HEMOGLOBIN LA1C 2.9 %; HEMOGLOBIN P3 6.3 %
[2016-08-20] MEDS: REMOVE OLD NICODERM (NICOTINE) PATCH TD SCH (20:29)
[2016-08-21 00:23] VITALS: BP 136/80; PULSE 97; RESP 18; TEMP 97.2; O2SAT 95
[2016-08-21] MEDS: methylPREDNISolone SOD SUCC 40 MG/1 ML VIAL IV PUSH SCH (06:07)
[2016-08-21] MEDS: INSULIN ASPART SUPPLEMENTAL SCALE SQ SCH (06:07)
[2016-08-21 07:15] LABS: BASOPHIL % 0.2 % (0.0-2.0); EOSINOPHIL % 0.1 % (0.0-4.0); LYMPHOCYTE # 0.9 TH/MM3 (1.0-4.8); MEAN CELL VOLUME 99.4 FL (80.0-100.0); MEAN CORPUSCULAR HEMOGLOBIN 33.8 PG (27.0-34.0); MONO % 3.4 % (0.0-8.0); NEUT % 87.3 % (16.0-70.0); PLATELET COUNT 366 TH/MM3 (150-450); RED BLOOD COUNT 3.42 MIL/MM3 (4.00-5.30); RED CELL DISTRIBUTION WIDTH 14.2 % (11.6-17.2); WHITE BLOOD COUNT 10.2 TH/MM3 (4.0-11.0)
[2016-08-21] MEDS: RESP: ALBUTEROL 2.5 MG/IPRATROPIUM 0.5 MG NEB (SCH) NEB (07:23)
[2016-08-21 07:25] VITALS: O2SAT 97
[2016-08-21 07:25] LABS: HEMO FLAGS AUTO DIFF; POTASSIUM 4.4 MEQ/L (3.5-5.1)
[2016-08-21 07:34] LABS: BICARBONATE 28.4 MEQ/L (21.0-32.0); MAGNESIUM 2.2 MG/DL (1.5-2.5)
[2016-08-21] MEDS: SODIUM CHLORIDE 0.9% FLUSH 5 ML FLUSH FLUSH SCH (07:46)
[2016-08-21] MEDS: ENOXAPARIN SODIUM 40 MG/0.4 ML SYRINGE SQ SCH (07:46)
[2016-08-21] MEDS: PANTOPRAZOLE SOD 40 MG DELAYED RELEASE TAB PO SCH (07:46)
[2016-08-21] MEDS: NICOTINE 7 MG/24 HR PATCH TD SCH (07:47)
[2016-08-21] MEDS: FAMOTIDINE 20 MG TAB PO SCH (07:47)
[2016-08-21] MEDS: ACETAMINOPHEN/HYDROcodone 325 MG/5 MG TAB PO PRN ×2 (07:47→11:37)
[2016-08-21] MEDS: TIOTROPIUM BROMIDE 18 MCG INH INH SCH (07:48)
[2016-08-21 08:00] VITALS: BP 120/76; PULSE 84; RESP 17; TEMP 97.7; O2SAT 92
[2016-08-21 08:19] LABS: SCAN/DIFF AUTO DIFF CONFIRMED
--- NOTE | 2016-08-21 08:23 | HHI.PR ---
Subjective Remarks Patient seen and examined today with Dr. Varghese. Patient states that she is doing much better. She is eager to go home. Would like to be discharged before 11 AM this morning. Objective Vitals Vital Signs Date Time Temp Pulse Resp B/P Pulse Ox O2 Delivery O2 Flow Rate FiO2 08/21/16 08:00 97.7 84 17 120/76 92 08/21/16 07:25 97 Nasal Cannula 2.00 08/21/16 04:00 08/21/16 00:23 97.2 97 18 136/80 95 08/20/16 21:16 97.1 101 20 142/86 93 08/20/16 20:00 93 Nasal Cannula 2.00 Humidified 08/20/16 19:40 96 Nasal Cannula 2.00 08/20/16 17:59 20 08/20/16 16:00 97.7 101 22 109/82 96 08/20/16 14:30 94 Nasal Cannula 2.00 08/20/16 12:00 97.4 98 22 136/80 97 I/O 08/20/16 08/20/16 08/20/16 08/21/16 08/21/16 08/21/16 07:00 15:00 23:00 07:00 15:00 23:00 Intake Total 750 ml Balance 750 ml Intake Oral 750 ml # Voids 2 4 2 Result Diagram: 08/21/16 0616 08/21/16 0616 Objective Remarks GENERAL: Well-developed, well-nourished, in no acute distress. alert and orientated HEENT: Head is normocephalic without any lesions or masses noted. Facial features are symmetric. Eyes: Extraocular muscles are intact. Conjunctivae were clear. NECK: Supple without any masses. Trachea midline no deviation. No JVD, no bruits are appreciated CARDIAC: Regular rhythm, regular rate. S1/S2 are heard. No murmurs gallops or rubs. LUNGS: No wheeze, rhonchi or rales. No use of accessory muscles on inspiration or expiration. ABDOMEN: Soft, nontender. Nondistended. Bowel sounds heard in all 4 quadrants. No organomegaly or masses. Negative rebound, negative guarding EXTREMITIES: No edema, pulses are equal bilaterally. No cyanosis or clubbing NEUROLOGY: Mood and affect appear appropriate. Cranial nerves II through XII grossly intact. Moving all extremities, speech is clear Urinary Catheter: No Vascular Central Line Catheter: No A/P Assessment and Plan -Acute COPD exacerbation with hypoxemia and acute bilateral pneumonitis. Improved at least 50% per patient. Tachycardia has improved. Continue Solu- Medrol 60 mg IV every 6 hr, DuoNeb's, Levaquin, Spiriva. Walk test demonstrates that she will need home oxygen. Consult disease case manager arrange home oxygen. Home oxygen has been arranged. Patient states that she does have her own nebulizer with medications at home. She also has an albuterol inhaler at home. -Hyperglycemia, secondary to steroid use. Hemoglobin A1c 5.5, Accu-Cheks with sliding scale insulin -Chronic hyponatremia. Stable and not symptomatic at this time, monitor sodium. -Chronic kidney disease stage III, stable. -Ongoing tobacco use. Continue cessation strategies. Nicotine patch. -DVT prophylaxis. Lovenox 40 mg subcutaneous daily. Written by Ancelmo Medeiros PA-C, acting as scribe for Dr. Varghese on 08/21/16 at 1130. The documentation accurately reflects the work and decisions performed face-to- face by Dr. Varghese on 08/21/16 at 1130. Ancelmo Medeiros Aug 21, 2016 08:23 Jaylyn Varghese MD Aug 21, 2016 14:33 Ancelmo Medeiros Aug 21, 2016 08:23
[2016-08-21] MEDS ORDERED: LEVA750T PO (08:25)
[2016-08-21] MEDS ORDERED: PANT40TA3 PO (08:25)
[2016-08-21] MEDS ORDERED: PRED5PAK2 PO (08:25)
[2016-08-21] MEDS ORDERED: SPIRCAP INH (08:25)
--- NOTE | 2016-08-21 08:26 | HHI.DCPOC ---
Discharge Care Plan Diagnosis: (1) COPD with acute exacerbation Goals to Promote Your Health * To prevent worsening of your condition and complications * To maintain your health at the optimal level Directions to Meet Your Goals Take your medications as prescribed Follow your dietary instruction Follow activity as directed Keep your appointments as scheduled Take your immunizations and boosters as scheduled If your symptoms worsen call your PCP, if no PCP go to Urgent Care Center or Emergency Room Smoking is Dangerous to Your Health. Avoid second hand smoke Call the 24-hour hour crisis hotline for domestic abuse at Ancelmo Medeiros Aug 21, 2016 08:25
[2016-08-21 08:47] VITALS: RESP 20
--- NOTE | 2016-08-21 17:04 | HHI.DS ---
Discharge Summary Admission Date Aug 18, 2016 at 13:17 Discharge Date: Aug 21, 2016 Admitting Diagnosis bilateral pneumonitis (1) COPD with acute exacerbation ICD Code: J44.1 (2) Pneumonitis ICD Code: J18.9 Procedures none Brief History - From Admission This is a 71-year-old female with past medical history significant for COPD with continued tobacco use and previous history of cervical cancer who presents to [facility] with complaints of increased shortness of breath, cough and fatigue ongoing for the past week. She also reports associated subjective fever , chills, runny nose and headache. Reports mild sore throat at the onset of her symptoms but this has since resolved. She also states that she had severe diarrhea all night long 2 nights ago but none in the past 24 hours. She had a brief episode of nausea yesterday morning but denies any vomiting. She denies any recent antibiotic use. She denies any complaints of chest pain or abdominal pain. She denies any lower extremity swelling. She denies any urinary complaints and also denies any hematochezia or melena. She does not use oxygen at home. She continues to smoke a half pack per day. She states she only uses an albuterol inhaler at home. She was previously on an inhaled twice daily medication but this ran out over a year ago. She's not been to see a physician for the past several years because she's been "healthy". She lives with her daughter and granddaughter both of whom have been ill with cough, fever and congestion and on antibiotics. CBC/BMP: 08/21/16 0616 08/21/16 0616 Significant Findings Laboratory Tests Test 08/21/16 06:16 Red Blood Count 3.42 MIL/MM3 (4.00-5.30) Hematocrit 34.0 % (35.0-46.0) Mean Platelet Volume 6.2 FL (7.0-11.0) Neutrophils (%) (Auto) 87.3 % (16.0-70.0) Neutrophils # (Auto) 9.0 TH/MM3 (1.8-7.7) Lymphocytes # (Auto) 0.9 TH/MM3 (1.0-4.8) Blood Urea Nitrogen 27 MG/DL (7-18) Estimat Glomerular Filtration 54 ML/MIN (>89) Rate Random Glucose 110 MG/DL (74-106) Calcium Level 8.4 MG/DL (8.5-10.1) PE at Discharge GENERAL: Well-developed, well-nourished, in no acute distress. alert and orientated HEENT: Head is normocephalic without any lesions or masses noted. Facial features are symmetric. Eyes: Extraocular muscles are intact. Conjunctivae were clear. NECK: Supple without any masses. Trachea midline no deviation. No JVD, no bruits are appreciated CARDIAC: Regular rhythm, regular rate. S1/S2 are heard. No murmurs gallops or rubs. LUNGS: No wheeze, rhonchi or rales. No use of accessory muscles on inspiration or expiration. ABDOMEN: Soft, nontender. Nondistended. Bowel sounds heard in all 4 quadrants. No organomegaly or masses. Negative rebound, negative guarding EXTREMITIES: No edema, pulses are equal bilaterally. No cyanosis or clubbing NEUROLOGY: Mood and affect appear appropriate. Cranial nerves II through XII grossly intact. Moving all extremities, speech is clear Hospital Course The patient was in his hospital and treated with steroids, breathing treatments and antibiotics. Symptoms improved. Lungs are clear today. She does require home oxygen. This will be arranged. Continued smoking cessation was advised. Follow-up with PCP. Also recommended follow-up with her turnaround engineer. Pt Condition on Discharge: Stable Discharge Disposition: Discharge Home Discharge Time: <= 30 minutes Discharge Instructions DIET: Follow Instructions for: As Tolerated, No Restrictions Activities you can perform: Regular-No Restrictions New Medications: Oxygen tank (Oxygen tank) 1 Ea Tank 2 LITER OZZY.CANULA CONTINUOUS Oxygen Concentrator Portable Gaseous 2 L/min via Nasal Cannula Continuous For 99 months HYPOXEMIA PREVENTION #2 CYLINDER Prednisone (48) 5 mg tab Dose Pack (Prednisone (48) 5 mg tab Dose Pack) 5 Mg Dspk 5 MG PO DIRECTED Inflammation #1 Ref 0 DSPK Levofloxacin (Levaquin) 750 Mg Tab 750 MG PO Q48H COPD/bronchitis Days 5 TAB Pantoprazole (Pantoprazole) 40 Mg Tab 40 MG PO DAILY GI protection from steroids Days 30 TAB Tiotropium Inh (Spiriva Handihaler) 18 Mcg Cap 18 MCG INH DAILY COPD Days 30 Jaylyn Wiggins MD Aug 21, 2016 17:04
== END 2016-08-21 12:21 | disposition home or self-care (01) | DRG 190 ==
LOC: PHED 17:35 → PHEDA 20:04 → PH3A 23:35 → OBSVTOIN 08-18 13:17
PROVIDERS: ADMIT Family Medicine; ATTEND Family Medicine
DX: J44.0 Chronic obstructive pulmonary disease with (acute) lower respiratory infection (principal); J18.9 Pneumonia, unspecified organism; J81.1 Chronic pulmonary edema; E87.1 Hypo-osmolality and hyponatremia; J44.1 Chronic obstructive pulmonary disease with (acute) exacerbation; N18.3 Chronic kidney disease, stage 3 (moderate); R09.02 Hypoxemia; T38.0X5A Adverse effect of glucocorticoids and synthetic analogues, initial encounter; R73.9 Hyperglycemia, unspecified; F17.210 Nicotine dependence, cigarettes, uncomplicated; Z85.41 Personal history of malignant neoplasm of cervix uteri; Z92.21 Personal history of antineoplastic chemotherapy
CPT/HCPCS: 36600; 71010; 80048; 82550; 82552; 82805; 82948; 83036; 83605; 83735; 83880; 84484; 85025; 85610; 85730; 87040; 87804; 93005; 93306; 94620; 94640; 94664; 96374; G0378; G8987-GP; G8988-GP; J1650; J1956; J2920; J2930